=== PATIENT | female | born 1975 | race African-American/Black ===

== ENCOUNTER 2019-11-25 06:53 | Emergency (ER) | payer BC, SELFPAY ==
[2019-11-25] MEDS ORDERED: PHENYLEPHRINE 0.5% NOSE 15ML NAS ONE (07:30)
[2019-11-25] MEDS ORDERED: AMLODIPINE 5 MG TAB ONE (07:56)
--- NOTE | 2019-11-25 09:38 | ER ---
Nurse's Notes [facility] Name: Mihir Nix Age: 44 yrs Sex: Female : 1975 Arrival Date: 11/25/2019 Time: 06:57 Bed 13 Private MD: Freddie Robison C Diagnosis: Epistaxis Presentation: 11/24 07:09 Chief complaint: Patient states: nose bleed since 0500 this AM. Pt reports a hx of HTN, ss but is not currently taking medication. Coronavirus screen: Client denies travel out of the [place] in the last 14 days. At this time, the client does not indicate any symptoms associated with coronavirus-19. Ebola Screen: Patient denies exposure to infectious person. Patient denies travel to an Ebola-affected area in the 21 days before illness onset. Initial Sepsis Screen: Does the patient meet any 2 criteria? No. Patient's initial sepsis screen is negative. Does the patient have a suspected source of infection? No. Patient's initial sepsis screen is negative. Risk Assessment: Do you want to hurt yourself or someone else? Patient reports no desire to harm self or others. Onset of symptoms was November 25, 2019. 07:09 Method Of Arrival: Ambulatory ss 07:09 Acuity: RHINA 3 ss Historical: - Allergies: 07:11 No Known Allergies; ss - PMHx: 07:11 Hypertension; ss - PSHx: 07:11 None; ss - Immunization history:: Adult Immunizations up to date. - Social history:: Smoking status: Patient denies any tobacco usage or history of. Screenin:32 Abuse screen: Denies threats or abuse. Denies injuries from another. Nutritional jr10 screening: No deficits noted. Tuberculosis screening: No symptoms or risk factors identified. Fall Risk None identified. Assessment: 07:31 General: Appears in no apparent distress. Behavior is calm, cooperative, appropriate jr10 for age. Pain: Denies pain. Neuro: No deficits noted. Level of Consciousness is awake, alert, obeys commands, Oriented to person, place, time, situation, Appropriate for age Denies blurred vision dizziness, headache. EENT: Nares with bleeding noted bilaterally that started this morning, pt noted to be HTN, states that she stopped taking her BP medication 2 years ago. 09:27 Reassessment: Patient and/or family updated on plan of care and expected duration. Pain jr10 level reassessed. Patient is alert, oriented x 3, equal unlabored respirations, skin warm/dry/pink. Patient states symptoms have improved. epistaxis has noted to cease at this time. Will continue to monitor and assess until dispo.. Vital Signs: 07:09 BP 173 / 94; Pulse 109; Resp 15; Temp 98.3(O); Pulse Ox 100% on R/A; Weight 96.16 kg; ss Height 5 ft. 8 in. (172.72 cm); Pain 0/10; 07:44 BP 156 / 92; Pulse 100; Resp 20; Pulse Ox 98% on R/A; Pain 0/10; jr10 08:23 BP 167 / 93; Pulse 91; Resp 20; Pulse Ox 97% on R/A; jr10 09:32 BP 153 / 94; Pulse 84; Resp 18; Pulse Ox 99% on R/A; Pain 0/10; jr10 07:09 Body Mass Index 32.23 (96.16 kg, 172.72 cm) ED Course: 06:57 Patient arrived in ED. es 06:57 Freddie Robison MD is Private Physician. es 07:04 [place] PA is PHCP. [facility] 07:04 Aaron Abbott MD is Attending Physician. jmm 07:10 Triage completed. ss 07:11 Arm band placed on right wrist. ss 07:17 Sandra Tarango, SIL is Primary Nurse. jr10 07:32 Patient has correct armband on for positive identification. Call light in reach. Side jr10 rails up X 1. Pulse ox on. NIBP on. 07:33 No provider procedures requiring assistance completed. jr10 09:37 Freddie Robison MD is Referral Physician. jmm 09:51 Patient did not have IV access during this emergency room visit. jr10 Administered Medications: 07:29 Drug: Adrián-Synephrine [place] 0.5 % 2 sprays Route: Intranasal; Site: both nares; jr10 07:49 Drug: amLODIPine 5 mg Route: PO; jr10 Outcome: 09:38 Discharge ordered by MD. jm 09:51 Discharged to home ambulatory. jr10 09:51 Condition: improved 09:51 Discharge instructions given to patient, Instructed on discharge instructions, follow up and referral plans. Demonstrated understanding of instructions, follow-up care. 09:52 Patient left the ED. jr10 Signatures: [place] PA PA jmm Salyer, Edna es Smirch, Shelby, RN RN ss Rivera, Jessica, RN RN jr10 Corrections: (The following items were deleted from the chart) 07:49 07:44 BP 156 / 92; jr10 jr10
--- NOTE | 2019-11-25 09:39 | EDPHYS ---
Physician Documentation [facility] Name: Mihir Nix Age: 44 yrs Sex: Female : 1975 Arrival Date: 11/25/2019 Time: 06:57 Bed 13 Private MD: Freddie Robison C ED Physician Aaron Abbott HPI: 11/24 07:09 This 44 yrs old Black Female presents to ER via Ambulatory with complaints of Nose jmm Bleed. 07:09 The patient presents with a nose bleed. Onset: The symptoms/episode began/occurred jmm gradually, last night. Modifying factors: The symptoms are alleviated by nothing. the symptoms are aggravated by nothing. This is a 44 year old female with a history of htn that presents to the ED with complaints of nose bleeding beginning last night which was mild to the right nostril. Patient states the bleeding intensified earlier this morning. Patient states she has not taken her BP medication in 2 years. . Historical: - Allergies: 07:11 No Known Allergies; ss - PMHx: 07:11 Hypertension; ss - PSHx: 07:11 None; ss - Immunization history:: Adult Immunizations up to date. - Social history:: Smoking status: Patient denies any tobacco usage or history of. ROS: 07:09 Constitutional: Negative for fever, chills, and weight loss, Cardiovascular: Negative jmm for chest pain, palpitations, and edema, Respiratory: Negative for shortness of breath, cough, wheezing, and pleuritic chest pain. 07:09 ENT: Positive for nose bleed. 07:09 All other systems are negative. Exam: 07:09 Constitutional: This is a well developed, well nourished patient who is awake, alert, jmm and in no acute distress. Head/Face: atraumatic. Eyes: EOMI, no conjunctival erythema appreciated 07:09 Neck: Trachea midline, Supple Chest/axilla: Normal chest wall appearance and motion. Cardiovascular: Regular rate and rhythm. No edema appreciated Respiratory: Normal respirations, no respiratory distress appreciated Abdomen/GI: Non distended, soft Back: Normal ROM Skin: General appearance color normal MS/ Extremity: Moves all extremities, no obvious deformities appreciated, no edema noted to the lower extremities Neuro: Awake and alert, normal gait Psych: Behavior is normal, Mood is normal, Patient is cooperative and pleasant 07:09 ENT: Nose: bleeding, is seen from the right nare, and is moderate, Posterior pharynx: is normal. Vital Signs: 07:09 BP 173 / 94; Pulse 109; Resp 15; Temp 98.3(O); Pulse Ox 100% on R/A; Weight 96.16 kg; ss Height 5 ft. 8 in. (172.72 cm); Pain 0/10; 07:44 BP 156 / 92; Pulse 100; Resp 20; Pulse Ox 98% on R/A; Pain 0/10; jr10 08:23 BP 167 / 93; Pulse 91; Resp 20; Pulse Ox 97% on R/A; jr10 09:32 BP 153 / 94; Pulse 84; Resp 18; Pulse Ox 99% on R/A; Pain 0/10; jr10 07:09 Body Mass Index 32.23 (96.16 kg, 172.72 cm) ss MDM: 07:09 Patient medically screened. [facility] 09:37 Data reviewed: vital signs, nurses notes. Counseling: I had a detailed discussion with odell the patient and/or guardian regarding: the historical points, exam findings, and any diagnostic results supporting the discharge/admit diagnosis, the need for outpatient follow up, to return to the emergency department if symptoms worsen or persist or if there are any questions or concerns that arise at home. ED course: Nose bleed has resolved with anterior pressure. Patient given strict return precautions. Patient understood and agrees with the plan of care. . Administered Medications: 07:29 Drug: Adrián-Synephrine [place] 0.5 % 2 sprays Route: Intranasal; Site: both nares; jr10 07:49 Drug: amLODIPine 5 mg Route: PO; jr10 Disposition: 11/25/19 09:38 Discharged to Home. Impression: Epistaxis. - Condition is Stable. - Discharge Instructions: Nosebleed, Adult. - Medication Reconciliation Form, Thank You Letter, Antibiotic Education, Prescription Opioid Use form. - Follow up: Freddie Robison MD; When: 2 - 3 days; Reason: Recheck today's complaints, Continuance of care, Re-evaluation by your physician. Signatures: [place] PA PA jmm Smirch, Shelby, RN RN Sandra Tarango RN RN jr10 Corrections: (The following items were deleted from the chart) 09:52 09:38 11/25/2019 09:38 Discharged to Home. Impression: Epistaxis. Condition is Stable. jr10 Forms are Medication Reconciliation Form, Thank You Letter, Antibiotic Education, Prescription Opioid Use. Follow up: Freddie Robison; When: 2 - 3 days; Reason: Recheck today's complaints, Continuance of care, Re-evaluation by your physician. odell
[2019-11-25 09:56] VITALS: TEMP 98.3
[2019-11-25 10:00] VITALS: BP 153/94; O2SAT 99
== END 2019-11-25 09:52 | disposition home or self-care (01) ==
LOC: ER 06:53
DX: R04.0 Epistaxis (principal); I10 Essential (primary) hypertension
CPT/HCPCS: 99283